=== PATIENT | female | born 1995 | race Hispanic/Latino ===

== ENCOUNTER 2017-08-04 20:20 | Outpatient (CLI) | payer OTHER ==
[~2017-08-04] VITALS: Ht 167.6 cm; Wt 81.0 kg
== END 2017-08-04 21:50 | disposition home or self-care (01) ==
LOC: M LDO 20:20
PROVIDERS: ATTEND Obstetrics & Gynecology
DX: O99.89 Other specified diseases and conditions complicating pregnancy, childbirth and the puerperium (principal); R19.7 Diarrhea, unspecified; R10.9 Unspecified abdominal pain; E86.0 Dehydration; O21.9 Vomiting of pregnancy, unspecified; Z3A.34 34 weeks gestation of pregnancy

== ENCOUNTER 2017-09-02 18:58 | Inpatient (IN) | payer OTHER ==
[2017-09-02] VITALS (7 sets, daily range): BP systolic 132–155; BP diastolic 81–96
[~2017-09-02] VITALS: Ht 167.6 cm; Wt 84.2 kg
[2017-09-02] MEDS ORDERED: LR 1,000 ML IV SCH (19:58)
[2017-09-02] MEDS ORDERED: OXYTOCIN DRIP 30 UNITS in APPROPRIATE DILUENT 1 EA IV SCH (20:00)
[2017-09-02 20:09] LABS: MEAN CORPUSCULAR HEMOGLOBIN 27.6 pg (27.0-33.0); MEAN CORPUSCULAR HGB CONC 32.3 g/dl (32.0-36.5); MEAN CORPUSCULAR VOLUME 85.6 fl (80.0-96.0); PLATELET COUNT, AUTOMATED 150 10^3/uL (150-450); RED CELL DISTRIBUTION WIDTH 13.9 % (11.5-14.5); WHITE BLOOD COUNT 15.7 10^3/uL (4.0-10.0)
[2017-09-02 20:41] LABS: ALBUMIN 2.9 GM/DL (3.2-5.2); ALBUMIN/GLOBULIN RATIO 0.63 (1.00-1.93); ALKALINE PHOSPHATASE 151 U/L (45-117); ALT/SGPT 20 U/L (12-78); ANION GAP 9 MEQ/L (8-16); AST/SGOT 18 U/L (7-37); BILIRUBIN,TOTAL 0.2 MG/DL (0.2-1.0); BLOOD UREA NITROGEN 10 MG/DL (7-18); CALCIUM LEVEL 9.2 MG/DL (8.5-10.1); CARBON DIOXIDE LEVEL 25 MEQ/L (21-32); CHLORIDE LEVEL 105 MEQ/L (98-107); CREATININE FOR GFR 0.64 MG/DL (0.55-1.02); GLOMERULAR FILTRATION RATE > 60.0 (>60); GLUCOSE, FASTING 100 MG/DL (70-105); POTASSIUM SERUM 3.6 MEQ/L (3.5-5.1); SODIUM LEVEL 139 MEQ/L (136-145); TOTAL PROTEIN 7.5 GM/DL (6.4-8.2)
[2017-09-02] MEDS ORDERED: FENTANYL 2MCG/ML ROPIVACAINE 0.2% IN 0.9% NACL 200ML IVBAG As Ordered ONE (23:03)
[2017-09-02] MEDS ORDERED: OXYTOCIN 30 UNITS IN 0.9% NaCl 500ML IV BAG (J2590) As Ordered ONE (23:14)
[2017-09-02] MEDS ORDERED: EPIDURAL/PCA KEYS XX PRN (23:23)
[2017-09-02] MEDS ORDERED: ePHEDrine SULFATE 25 MG/5 ML(5MG/ML) SYRINGE IV PRN (23:23)
[2017-09-02] MEDS ORDERED: LACTATED RINGER'S 1000 ML IV PRN (23:23)
[2017-09-02] MEDS ORDERED: ONDANSETRON 4MG/2ML VIAL (J2405) IV PRN (23:23)
[2017-09-02] MEDS ORDERED: FENTANYL/ROPIVACAINE/NACL BAG 200 ML EPIDURAL SCH (23:23)
[2017-09-02] MEDS ORDERED: EPIDURAL COMMENT XX SCH (23:23)
[2017-09-02] MEDS ORDERED: diphenhydrAMINE INJ 50MG/ML VIAL (J1200) IV PRN (23:23)
[2017-09-02] MEDS ORDERED: NALOXONE INJ 0.4 MG/1 ML VIAL (J2310) IV PRN (23:23)
[2017-09-02] MEDS ORDERED: REFRIGERATOR IV KEYS XX PRN (23:23)
[2017-09-03] MEDS ORDERED: ONDANSETRON 4MG/2ML VIAL (J2405) As Ordered ONE (00:15)
[2017-09-03] MEDS ORDERED: ONDANSETRON 4MG/2ML VIAL (J2405) IV ONE (00:30)
[2017-09-03] MEDS ORDERED: PROMETHAZINE 25 MG TAB PO PRN (01:00)
[2017-09-03] MEDS ORDERED: ACETAMINOPHEN 500 MG TAB PO PRN (01:00)
[2017-09-03] MEDS ORDERED: MEASLES,MUMPS,RUBELLA VACCINE INJ (MMR-II) (90707) SC SCH (01:00)
[2017-09-03] MEDS ORDERED: DOCUSATE SODIUM 100 MG CAP PO PRN (01:00)
[2017-09-03] MEDS ORDERED: MOM 30ML SUSPENSION UDC PO PRN (01:00)
[2017-09-03] MEDS ORDERED: DIBUCAINE 1% OINTMENT 30GM TOP PRN (01:00)
[2017-09-03] MEDS ORDERED: RHOGAM 300 MCG (1500 IU) INJ (J2790) IM SCH (01:00)
[2017-09-03] MEDS ORDERED: METHYLERGONOVINE MALEATE 0.2 MG TAB PO PRN (01:00)
[2017-09-03 03:20] VITALS: BP 115/57
[2017-09-03] MEDS: IBUPROFEN 800 MG TAB PO PRN ×2 (04:29→13:39)
[2017-09-03 06:27] VITALS: BP 115/56
[2017-09-03] MEDS: PRENATAL VITAMINS CHEWABLE TABLET PO SCH (07:51)
[2017-09-03 18:00] VITALS: BP 132/71
[2017-09-04] MEDS: IBUPROFEN 800 MG TAB PO PRN (01:52)
[2017-09-04 06:00] VITALS: BP 109/58
[2017-09-04] MEDS: PRENATAL VITAMINS CHEWABLE TABLET PO SCH (07:43)
[2017-09-04] MEDS ORDERED: PRENTAB9 PO (09:15)
[2017-09-04] MEDS ORDERED: DIBU1OIN TOP (09:15)
[2017-09-04] MEDS ORDERED: MOM30SS PO (09:15)
[2017-09-04] MEDS ORDERED: IBUP-1114 PO (09:15)
[2017-09-04] MEDS ORDERED: ACET50TA PO (09:15)
[2017-09-04] MEDS ORDERED: COLA100C5 PO (09:15)
--- NOTE | 2017-09-04 10:49 | DSES ---
DATE OF ADMISSION: 09/02/2017 DATE OF DISCHARGE: 09/04/2017 A 22-year-old 4, now para 4, admitted in spontaneous labor, delivered a livebirth female , 2750 grams, scores of 8 and 9 at 1 and 5 minutes, respectively. She had a small first-degree tear repaired in the usual fashion. On discharge, blood pressure 109/58, respirations 18, pulse 68, temperature 98.0. Admitting hemoglobin 11.3, hematocrit 35.0, and platelets are 150. We discussed phlebitis, cystitis, mastitis, endometritis, cellulitis, diet, exercise, pain management, perineal, breast, and wound care. On discharge, she is normocephalic, atraumatic. Neck: Full range of motion. Pupils equal and reactive to light. Distal pulses are normal. No evidence of deep venous thrombosis (DVT), pulmonary embolism (PE), or superficial phlebitis. Chest is clear bilaterally to the bases. No wheezes or rhonchi. No costovertebral angle (CVA) tenderness. Uterus 2 below. Lochia is moderate. Perineum is intact, and four-quadrant bowel sounds are noted. She has no rashes, lesions, or pruritus. No arthralgia or myalgia. No complaint of cough, wheezes, shortness of breath, or dyspnea on exertion. She has no chest pain. Neuro complete. No urgency, frequency. No nausea, vomiting, diarrhea, or constipation. She is . No domestic violence. Good support systems at home. In summary, we have a term gestation, delivered a livebirth female . Discharged with medications. All questions answered and will make an appointment for a 6-week checkup with [facility] ([facility]).
== END 2017-09-04 10:25 | disposition home or self-care (01) | DRG 775 ==
LOC: M LDO 18:58 → M LDI 19:57 → M OBS 09-03 03:10
PROVIDERS: ADMIT Midwife; ATTEND Midwife
PROC: 10E0XZZ Delivery of Products of Conception, External Approach (ICD-10-PCS; principal; 2017-09-03)
PROC: 10907ZC Drainage of Amniotic Fluid, Therapeutic from Products of Conception, Via Natural or Artificial Opening (ICD-10-PCS; 2017-09-03)
PROC: 0HQ9XZZ Repair Perineum Skin, External Approach (ICD-10-PCS; 2017-09-03)
DX: O70.0 First degree perineal laceration during delivery (principal); Z37.0 Single live birth; Z3A.38 38 weeks gestation of pregnancy

== ENCOUNTER → 2019-11-25 | Outpatient (REF) | payer OTHER, SELFPAY ==
[~2019-11-25] MED LIST: COLA100C5 PO; DIBU1OIN TOP; IBUP-1114 PO; MAPA500T2 PO; MOM30SS PO; PRENTAB9 PO
[2019-11-25 22:21] LABS: INFLUENZA A AMPLIFICATION NEGATIVE (NEGATIVE); INFLUENZA B AMPLIFICATION NEGATIVE (NEGATIVE)
== END ==
LOC: M LAB 21:25
PROVIDERS: ATTEND Physician Assistant
DX: R50.9 Fever, unspecified (principal); J02.9 Acute pharyngitis, unspecified

== ENCOUNTER 2020-04-02 13:03 | Emergency (ER) | payer OTHER, SELFPAY ==
[~2020-04-02] VITALS: Ht 167.6 cm; Wt 78.7 kg
[2020-04-02] MEDS ORDERED: BUSP5TAB81 PO (13:22)
[2020-04-02 13:52] LABS: HEMATOCRIT 43.7 % (36.0-47.0); HEMOGLOBIN 14.9 g/dl (12.0-15.5); MEAN CORPUSCULAR HEMOGLOBIN 30.1 pg (27.0-33.0); MEAN CORPUSCULAR HGB CONC 34.1 g/dl (32.0-36.5); MEAN CORPUSCULAR VOLUME 88.3 fl (80.0-96.0); PLATELET COUNT, AUTOMATED 239 10^3/uL (150-450); RED BLOOD COUNT 4.95 10^6/uL (4.00-5.40); WHITE BLOOD COUNT 9.6 10^3/uL (4.0-10.0)
[2020-04-02 14:09] LABS: HCG, SERUM QUALITATIVE NEGATIVE (NEGATIVE)
[2020-04-02 14:13] LABS: ACETAMINOPHEN LEVEL < 2.0 UG/ML (10.0-30.0); ALBUMIN 3.9 GM/DL (3.2-5.2); ALT/SGPT 24 U/L (12-78); BILIRUBIN,DIRECT 0.2 MG/DL (0.0-0.2); BILIRUBIN,TOTAL 0.7 MG/DL (0.2-1.0); BLOOD UREA NITROGEN 10 MG/DL (7-18); CALCIUM LEVEL 8.9 MG/DL (8.5-10.1); CARBON DIOXIDE LEVEL 24 MEQ/L (21-32); CHLORIDE LEVEL 108 MEQ/L (98-107); CREATININE FOR GFR 0.65 MG/DL (0.55-1.30); ETHYL ALCOHOL (ETHANOL) < 0.003 % (0.000-0.010); GLOMERULAR FILTRATION RATE > 60.0 (>60); GLUCOSE, FASTING 93 MG/DL (70-100); SALICYLATE LEVEL < 1.7 MG/DL (5.0-30.0); SODIUM LEVEL 138 MEQ/L (136-145); TOTAL PROTEIN 7.9 GM/DL (6.4-8.2)
[2020-04-02 15:43] LABS: AMPHETAMINES LEVEL URINE NEGATIVE (NEGATIVE); BARBITURATES URINE NEGATIVE (NEGATIVE); BENZODIAZEPINES URINE NEGATIVE (NEGATIVE); CANNABINOIDS URINE NEGATIVE (NEGATIVE); COCAINE METABOLITE URINE NEGATIVE (NEGATIVE); METHADONE URINE NEGATIVE (NEGATIVE); OPIATES URINE NEGATIVE (NEGATIVE); PHENCYCLIDINE URINE NEGATIVE (NEGATIVE)
--- NOTE | 2020-04-02 18:51 | ECGEPIP ---
[facility] - ED Test Date: 2020-04-02 Pat Name: WILI BRISENO Department: Room: - Gender: Female Community Liaison Officer: REINIER : 1995 Requested By: RIVERA ORTIZ Order Number: [id number] Reading MD: Ciara Prado Measurements Intervals [place] Rate: 64 P: 38 AK: 143 QRS: 46 QRSD: 83 T: 48 QT: 395 QTc: 408 Interpretive Statements SINUS RHYTHM NO PRIOR ECG FOR COMPARISON Electronically Signed on 04-02-2020 18:51:11 EDT by Ciara Prado
[2020-04-03] MEDS ORDERED: ACETAMINOPHEN TAB 650MG DOSE (2X325MG) PO ONE (12:45)
--- NOTE | 2020-04-03 15:29 | ED PDOC ---
Provider Note Subjective HPI: Yessy presents today for a follow up after being admited to the ER for face to face re-evaultion, reviewed PSA notes, patient reportedly self-presented with vague SI in the setting of recently moving to the area. She is eager to be discharged as she reports her SI has resloved and she wants to engage in outpatient care. . She denies any history of self harm or psychiatric hospitalizations. When she got , she was taken off of Buspar, Yessy denies any auditory hallucinations.Screens negative for Bipolar and psychotic disorders ALLERGIES: She denies any allergies to medications. FAMILY HISTORY: Regarding family history, her mother had depression and anxiety, Past Psych: as above, reviewed PSA evaluation Sochx: 4 kids, in , good support Objective Appearance: Well nourished. Well groomed. Behavior: Engaged. Pleasant. Cooperative with good eye contact. Affect: Appropriate to context. Full range. Mood: Generally good. Euthymic. Appropriately reactive. Speech: Normal volume. Normal rate. Motor: No gross motor abnormalities. Cognition: Alert, Attentive, and Oriented to person, place, time. Memory: No formal testing. No gross abnormalities of short or fci memory noted during interview. Thought Form: Linear and goal directed. Thought Content: No thoughts of self harm. No evidence of suicidal ideation. No evidence of aggressive or homicidal ideation. No evidence of delusions. Perception: No perceptual abnormalities noted. Judgement: intact as evidenced by decision making in the recent past. Insight: good insight into symptoms and treatment options. Assessment F43.21 Adjustment disorder with depressed mood Plan Discharged to home. The patient at the time of discharge did not meet criteria for involuntary admission/extension due to having a normal mental status exam, fair insight into the situation, They are engaged in the discharge process, as well as being friendly and amenable in behavioral control and havent been engaging in any observed concerning behavior or ideation recently. They decline voluntary extension/admission at this time and must be discharged in good lit, as Im unable to make a case for holding the patient against their will. They may have historical risk factors of admissions and other interactions with psychiatry however, those are not modifiable from a clinical perspective. The patient will need to be discharged in good lit. GAEL ALVAREZ DO Apr 03, 2020 15:29
[2020-04-03 17:27] VITALS: BP 142/74
== END 2020-04-03 17:29 | disposition home or self-care (01) ==
LOC: M ED 13:03
DX: F32.9 Major depressive disorder, single episode, unspecified (principal); Z91.040 Latex allergy status
CPT/HCPCS: 80048; 80076; 80307; 84443; 84703; 85027; 93005; 99284; G0480